=== PATIENT | female | born 1960 | race Caucasian/White ===

== ENCOUNTER 2018-06-27 10:36 | Emergency (ER) | payer OTHER ==
[2018-06-27 10:53] VITALS: TEMP 98.5; BMI 30.8
--- NOTE | 2018-06-27 11:07 | PDOC ---
History of Present Illness - General Chief Complaint: Injury Stated Complaint: FALL, LEFT RIBS PAIN - History of Present Illness Initial Comments: The patient is a 58F w/ a history of HTN, HIV (undetectable and CD4 1000s) who presents for evaluation of L thoracic pain s/p mechanical fall in shower last night at 2230. Patient reports that she slipped while getting into the shower and fell on the lip of the bathtub. Remembers the event in its entirety. Denies hitting her head and LOC. Patient took 2 advil at that time w/ some relief. Denies recent illness, fevers/chill, LOC, SHEPPARD, vision changes, SOB, abdominal pain, N/V/C/D 06/27/18 11:33 Past History - Past Medical History Allergies/Adverse Reactions: Allergies Allergy/AdvReac Type Severity Reaction Status Date / Time nitroglycerin Allergy Verified 06/27/18 10:46 Home Medications: Ambulatory Orders Atenolol [Tenormin -] 25 mg PO DAILY #30 tablet 04/15/18 Elviteg/Cob/Emtri/Tenof Alafen [Genvoya Tablet] 1 each PO DAILY #30 tablet 04/15 Gabapentin [Neurontin -] 100 mg PO HS #30 capsule 04/15/18 Lisinopril [Prinivil] 20 mg PO DAILY #30 tablet 04/15/18 Aspirin [Aspirin EC] 81 mg PO DAILY #30 tablet.dr 06/03/18 Atorvastatin Ca [Lipitor] 1 tab PO DAILY #30 tablet 06/03/18 Cholecalciferol (Vitamin D3) [Vitamin D3 -] 1,000 unit PO DAILY #30 tab Ranitidine [Zantac -] 1 tab PO DAILY #30 tablet 06/03/18 Sennosides [Senna -] 2 tab PO HS #60 tablet 06/03/18 Valacyclovir HCl [Valtrex -] 500 mg PO BID #10 tablet 06/15/18 Naproxen 500 mg PO BID PRN #14 tablet 06/27/18 Anemia: No Asthma: No Cancer: No Cardiac Disorders: Yes CVA: No COPD: No CHF: No Dementia: No Diabetes: No GI Disorders: No Disorders: Yes (renal calculus - s/p lithotripsy) HTN: Yes Hypercholesterolemia: Yes Liver Disease: No Seizures: No Thyroid Disease: No - Surgical History Abdominal Surgery: Yes - Immunization History Immunization Up to Date: Yes - Suicide/Smoking/Psychosocial Hx Smoking Status: No Smoking History: Never smoked Have you smoked in the past 12 months: No Number of Cigarettes Smoked Daily: 0 Cigars Per Day: 0 Hx Alcohol Use: No Drug/Substance Use Hx: No Substance Use Type: None Hx Substance Use Treatment: No Review of Systems - Review of Systems Able to Perform ROS?: Yes Comments:: GENERAL/CONSTITUTIONAL: No fever or chills. No weakness HEAD, EYES, EARS, NOSE AND THROAT: No change in vision. No ear pain or discharge. No sore throat CARDIOVASCULAR: No shortness of breath RESPIRATORY: Denies cough, hemoptysis GASTROINTESTINAL: No nausea, vomiting, diarrhea or constipation GENITOURINARY: No dysuria, frequency, or change in urination MUSCULOSKELETAL: +L thoracic pain; No joint or muscle swelling or pain. No neck or back pain SKIN: No rash NEUROLOGIC: No headache, vertigo, loss of consciousness, or change in strength/ sensation ENDOCRINE: No increased thirst. No abnormal weight change HEMATOLOGIC/LYMPHATIC: No anemia, easy bleeding, or history of blood clots ALLERGIC/IMMUNOLOGIC: No hives or skin allergy; +HIV,HSV 06/27/18 11:07 Is the patient limited Kazakh proficient: No *Physical Exam - Vital Signs Last Vital Signs Temp Pulse Resp BP Pulse Ox 98.5 F 73 16 154/84 99 06/27/18 10:48 06/27/18 10:48 06/27/18 10:48 06/27/18 10:48 06/27/18 10:48 - Physical Exam Comments: GENERAL: Awake, alert, and fully oriented, in no acute distress HEAD: No signs of trauma, normocephalic, atraumatic EYES: PERRLA, EOMI, sclera anicteric, conjunctiva clear ENT: Hearing grossly normal, nares patent, oropharynx clear without exudates. Moist mucosa CHEST: Exquisite TTP and small amount of laxity palpated at L inferior costal margin LUNGS: No distress, speaks full sentences, clear to auscultation bilaterally HEART: Regular rate and rhythm, normal S1 and S2, no murmurs appreciated, peripheral pulses normal and equal bilaterally ABDOMEN: Soft, nontender, normoactive bowel sounds. No guarding, no rebound. EXTREMITIES : Normal inspection, Normal range of motion, no edema. No clubbing or cyanosis NEUROLOGICAL: Cranial nerves II through XII grossly intact. Normal speech, normal gait, no focal sensorimotor deficits SKIN: Warm, Dry, normal turgor, no rashes or lesions noted 06/27/18 11:07 Moderate Sedation - Procedure Monitoring Vital Signs: Procedure Monitoring Vital Signs Temperature 98.5 F 06/27/18 10:48 Pulse Rate 73 06/27/18 10:48 Respiratory Rate 16 06/27/18 10:48 Blood Pressure 154/84 06/27/18 10:48 O2 Sat by Pulse Oximetry (%) 99 06/27/18 10:48 ED Treatment Course - LABORATORY CBC & Chemistry Diagram: 06/27/18 11:39 06/27/18 11:39 Medical Decision Making - Medical Decision Making The patient is a 58F w/ a history of HTN, HIV, and HSV who presents for evaluation of L thoracic pain s/p mechanical fall last night ED Course Tylenol 975mg PO once CT Chest sig for likely L 7th non-displaced fx lytes wnl no leukocytosis no anemia no ALISON LFTs wnl 06/27/18 13:18 Patient provided with an IS and instructed on how to use it Plan for D/C w/ PCP f/u Discharge instruction and return precautions given Plan discussed w/ patient who is in agreement and verbalized understanding Dispo: home 06/27/18 13:30 *DC/Admit/Observation/Transfer Diagnosis at time of Disposition: Fall Qualifiers: Encounter type: initial encounter Qualified Code(s): W19.XXXA - Unspecified fall, initial encounter Rib fracture Qualifiers: Encounter type: initial encounter Rib fracture type: single rib Fracture type: closed Laterality: left Qualified Code(s): S22.32XA - Fracture of one rib, left side, initial encounter for closed fracture - Discharge Dispostion Disposition: HOME Condition at time of disposition: Stable Decision to Admit order: No - Prescriptions Prescriptions: Naproxen 500 mg PO BID PRN #14 tablet PRN Reason: Pain - Referrals Referrals: Mi Polo FNP [Primary Care Provider] - - Patient Instructions Printed Discharge Instructions: DI for Rib Fracture, How to Prevent Falls, DI for Musculoskeletal Pain Additional Instructions: You were seen in the Emergency Department today for evaluation of left chest pain after falling in the bathtub. Review the handout provided at discharge. You may take Ibuprofen up to 800mg three times a day for pain and Tylenol up to 1000mg four times a day for pain. Follow up with your primary care provider within the next 1-3 days. Continue to use the incentive spirometry as directed. Return to the Emergency Department if you develop fevers/chills, worsening pain , trouble breathing, worsening symptoms, or any new/concerning symptoms. - Post Discharge Activity
[2018-06-27] MEDS ORDERED: ACETAMINOPHEN 325 MG TABLET (FP) PO ONE (11:14)
[2018-06-27] MEDS ORDERED: ACETAMINOPHEN 325 MG TABLET (FP) ONE (11:42)
[2018-06-27 12:29] LABS: BASO % 0.6 % (0-2.0); EOS % 0.9 % (0-4.5); HEMATOCRIT 36.9 % (32.4-45.2); HEMOGLOBIN 12.8 GM/dL (10.7-15.3); LYMPH % 36.1 % (8-40); MCH 33.6 pg (25.7-33.7); MCHC 34.8 g/dl (32.0-36.0); MEAN CELL VOLUME 96.4 fl (80-96); MEAN PLT VOLUME 11.2 fl (7.5-11.1); MONO % 10.4 % (3.8-10.2); PLATELET COUNT 200 K/MM3 (134-434); RBC 3.83 M/mm3 (3.60-5.2); RDW 13.6 % (11.6-15.6); WHITE BLOOD COUNT 11.3 K/mm3 (4.0-10.0)
[2018-06-27 12:59] LABS: ALK PHOS 97 U/L (45-117); ANION GAP 7 MMOL/L (8-16); BILIRUBIN,TOTAL 0.4 mg/dL (0.2-1); BLOOD UREA NITROGEN 16 mg/dL (7-18); CALCIUM 8.8 mg/dL (8.5-10.1); CHLORIDE 107 mmol/L (98-107); CO2 28 mmol/L (21-32); CREATININE 0.7 mg/dL (0.55-1.3); GLUCOSE,RANDOM 83 mg/dL (74-106); SGOT/AST 16 U/L (15-37); SGPT/ALT 24 U/L (13-61); SODIUM 142 mmol/L (136-145); TOT PROT 7.3 g/dl (6.4-8.2)
--- NOTE | 2018-06-27 13:43 | PDOC ---
Attending Attestation - Resident Resident Name: Dwight Gabriel - ED Attending Attestation I have performed the following: I have examined & evaluated the patient, The case was reviewed & discussed with the resident, I agree w/resident's findings & plan, Exceptions are as noted - HPI HPI: 06/27/18 13:30 58-year-old female with a history of hypertension, HIV with undetectable viral load and CD4 count in the 1000 range, compliant with HAART presents to the emergency department with L sided rib pain after a fall last night. The patient reports she slipped in the shower landing onto her left ribs. Denies head strike or LOC. Reports pain was managable last night and controlled with advil. THis morning, the pain was worse, especially with breathing prompting her to come to the ED. Denies other injuries or pain elsewhere. Denies fevers, chills, neck pain, back pain,cp, sob, abd pain, N/V/D, cough, urinary sxs, focal weakness/numbness - Physicial Exam PE: 06/27/18 13:44 GENERAL: Awake, alert, and fully oriented, in no acute distress. Very pleasant. HEAD: No signs of trauma EYES: PERRLA, EOMI, sclera anicteric, conjunctiva clear ENT: Auricles normal inspection, hearing grossly normal, nares patent, oropharynx clear without exudates. Moist mucosa NECK: Normal ROM, supple, no lymphadenopathy, JVD, or masses LUNGS: Breath sounds equal, clear to auscultation bilaterally. No wheezes, and no crackles CHEST: Regular rate and rhythm, normal S1 and S2, no murmurs, rubs or gallops. Point ttp over ant L rib by inframammary crease. No crepitus ABDOMEN: Soft, nontender, normoactive bowel sounds. No guarding, no rebound. No masses EXTREMITIES: Normal range of motion, no edema. No clubbing or cyanosis. No cords, erythema, or tenderness NEUROLOGICAL: Normal speech, cranial nerves intact, 5/5 strength in all 4 extremities, normal sensation to light touch in all 4 extremities, normal cerebellar exam, normal gait BACK: no midline cervical, thoracic, and lumbar ttp SKIN: Warm, Dry, normal turgor, no rashes, bruises or lesions noted. - Medical Decision Making 06/27/18 13:51 58yo F presents to the ED with mechanical fall. CT reveals non displaced L 7th rib fracture at location of pain Pt satting >97% throughout ED stay Pain well controlled Given incentive spirometer Return precautions given Requests DC home I discussed the physical exam findings, ancillary test results and final diagnoses with the patient. I answered all of the patient's questions. The patient was satisfied with the care received and felt comfortable with the discharge plan and treatment plan. The patient will call their primary care physician within 24 hours to arrange follow-up and will return to the Emergency Department with any new, persistent or worsening symptoms.
[2018-06-27] MEDS ORDERED: NAPROXEN 500 MG TABLET (FP) PO ONE (13:52)
[2018-06-27] MEDS ORDERED: NAPROXEN 500 MG TABLET (FP) ONE (13:56)
[2018-06-27 14:04] VITALS: BP 155/73; PULSE 78
== END 2018-06-27 14:04 | disposition home or self-care (01) ==
LOC: JER 10:36
DX: S22.32XA Fracture of one rib, left side, initial encounter for closed fracture (principal); W18.2XXA Fall in (into) shower or empty bathtub, initial encounter; Y93.E1 Activity, personal bathing and showering; Y92.031 Bathroom in apartment as the place of occurrence of the external cause; Y99.8 Other external cause status
CPT/HCPCS: 36415; 71046-TC-FY; 71250-TC; 80053; 85025; 99283-25

== ENCOUNTER 2018-09-21 15:26 | Emergency (ER) | payer OTHER ==
[2018-09-21] MEDS ORDERED: SODIUM CHLORIDE 1,000 ML IV STA (15:32)
--- NOTE | 2018-09-21 15:32 | PDOC ---
Rapid Medical Evaluation Time Seen by Provider: 09/21/18 15:27 Medical Evaluation: Allergies Allergy/AdvReac Type Severity Reaction Status Date / Time nitroglycerin Allergy Verified 06/27/18 10:46 09/21/18 15:27 I have performed a brief in-person evaluation of this patient. The patient presents with a chief complaint of: fever, abd pain and diarrhea Pertinent physical exam findings: VSS,AF. ABD SNTND. Returned from 09/14 I have ordered the following: labs, urine The patient will proceed to the ED for further evaluation. Discharge Disposition - Diagnosis Diarrhea - Referrals - Patient Instructions - Post Discharge Activity
[2018-09-21 15:34] VITALS: BP 158/70; PULSE 85; TEMP 98.4; BMI 29.9
[2018-09-21 16:01] LABS: BASO % 0.3 % (0-2.0); EOS % 0.5 % (0-4.5); HEMATOCRIT 39.7 % (32.4-45.2); HEMOGLOBIN 13.6 GM/dL (10.7-15.3); LYMPH % 38.9 % (8-40); MCH 33.4 pg (25.7-33.7); MCHC 34.4 g/dl (32.0-36.0); MEAN CELL VOLUME 97.3 fl (80-96); MONO % 10.6 % (3.8-10.2); NEUT % 49.7 % (42.8-82.8); RBC 4.08 M/mm3 (3.60-5.2); RDW 13.3 % (11.6-15.6); WHITE BLOOD COUNT 9.9 K/mm3 (4.0-10.0)
--- NOTE | 2018-09-21 16:03 | PDOC ---
History of Present Illness - General Chief Complaint: Vomiting/Diarrhea Stated Complaint: FEVER/ ABD PAIN Time Seen by Provider: 09/21/18 15:27 History Source: Patient - History of Present Illness Timing/Duration: other Past History - Past Medical History Allergies/Adverse Reactions: Allergies Allergy/AdvReac Type Severity Reaction Status Date / Time nitroglycerin Allergy Mild Verified 09/21/18 15:28 Home Medications: Ambulatory Orders Atenolol [Tenormin -] 25 mg PO DAILY #30 tablet 04/15/18 Elviteg/Cob/Emtri/Tenof Alafen [Genvoya Tablet] 1 each PO DAILY #30 tablet 04/15 Gabapentin [Neurontin -] 100 mg PO HS #30 capsule 04/15/18 Lisinopril [Prinivil] 20 mg PO DAILY #30 tablet 04/15/18 Aspirin [Aspirin EC] 81 mg PO DAILY #30 tablet. 06/03/18 Atorvastatin Ca [Lipitor] 1 tab PO DAILY #30 tablet 06/03/18 Sennosides [Senna -] 2 tab PO HS #60 tablet 06/03/18 Valacyclovir HCl [Valtrex -] 500 mg PO BID #10 tablet 06/15/18 Cholecalciferol (Vitamin D3) [Vitamin D3 -] 1,000 unit PO DAILY #30 tab Ranitidine [Zantac -] 1 tab PO DAILY #30 tablet 07/16/18 Diazepam [Valium] 1 tab PO ONCE PRN #2 tablet MDD 1 08/12/18 Fluticasone Prop 0.05% Nasal [Flonase -] 1 - 2 spray NS DAILY #1 spray.pump Guaifenesin [Mucinex -] 1 - 2 tab PO BID #28 tablet.er 08/26/18 Guaifenesin [Mucinex -] 1 - 2 tab PO BID PRN 08/26/18 Olopatadine HCl [Patanol] 1 drop OU BID #1 bottle 08/26/18 Soft Lens Rinse,Store Solution [Saline Sensitive Eyes] 2 drop OU QID 08/26/18 Ciprofloxacin [Cipro -] 500 mg PO Q12H #6 tablet 09/21/18 Anemia: No Asthma: No Cancer: No Cardiac Disorders: Yes CVA: No COPD: No CHF: No Dementia: No Diabetes: No GI Disorders: No Disorders: Yes (renal calculus - s/p lithotripsy) HTN: Yes Hypercholesterolemia: Yes Liver Disease: No Seizures: No Thyroid Disease: No - Surgical History Abdominal Surgery: Yes - Immunization History Immunization Up to Date: Yes - Suicide/Smoking/Psychosocial Hx Smoking Status: No Smoking History: Never smoked Have you smoked in the past 12 months: No Number of Cigarettes Smoked Daily: 0 Cigars Per Day: 0 Information on smoking cessation initiated: No Hx Alcohol Use: No Drug/Substance Use Hx: No Substance Use Type: None Hx Substance Use Treatment: No Review of Systems - Review of Systems Constitutional: Yes: Fever, Malaise Respiratory: No: Cough, Shortness of Breath Cardiac (ROS): No: Chest Pain ABD/GI: Yes: Diarrhea, Nausea, Abdominal cramping. No: Constipated, Rectal Bleeding, Vomiting : No: Dysuria *Physical Exam - Vital Signs Last Vital Signs Temp Pulse Resp BP Pulse Ox 98.4 F 85 18 158/70 100 09/21/18 15:28 09/21/18 15:28 09/21/18 15:28 09/21/18 15:28 09/21/18 15:28 - Physical Exam General Appearance: Yes: Appropriately Dressed. No: Apparent Distress HEENT: positive: Normal Voice Neck: positive: Supple Respiratory/Chest: negative: Respiratory Distress Gastrointestinal/Abdominal: positive: Normal Bowel Sounds, Tender (minimal ttp diffusely), Soft. negative: Distended, Guarding, Rebound Musculoskeletal: negative: CVA Tenderness Integumentary: positive: Dry, Warm Neurologic: positive: Fully Oriented, Alert, Normal Mood/Affect Moderate Sedation - Procedure Monitoring Vital Signs: Procedure Monitoring Vital Signs Temperature 98.4 F 09/21/18 15:28 Pulse Rate 85 09/21/18 15:28 Respiratory Rate 18 09/21/18 15:28 Blood Pressure 158/70 09/21/18 15:28 O2 Sat by Pulse Oximetry (%) 100 09/21/18 15:28 ED Treatment Course - LABORATORY CBC & Chemistry Diagram: 09/21/18 15:39 09/21/18 15:39 Medical Decision Making - Medical Decision Making 09/21/18 15:55 58 yo , h/o HIV (x 20 years, on medications, CD4 ~1700, UD VL, no OIs), HTN, [place] , here w/ abd cramping w/ numerous e/o NB diarrhea w/ malaise, dizziness and nausea x 5 days. Also reports fever of 102 F several days ago that has since resolved. Pt returned from the [place] week ago and states daughter who traveled with her also similar symptoms. Patient denies bloody stools See exam Diarrheal illness in setting of travel, less likely diverticulitis or appy Stable and in NAD w/ minimal ttp to abd diffusely -supportive tx in ER -labs including stool studies -Will d/c need for imaging w/ Dr Echevarria vs tx empirically for traveller's diarrhea 09/21/18 16:11 09/21/18 17:39 Labs unremarkable. Patient reports improvement with supportive treatment in ER w/ benign abd on reassessment. As discussed with Dr. Echevarria, will treat empirically for traveler's diarrhea with strict return precautions. Patient was unable to give us a stool sample here, but given container to collect stool at home and bring into her PMD this week 09/21/18 17:43 *DC/Admit/Observation/Transfer Diagnosis at time of Disposition: Diarrhea Qualifiers: Diarrhea type: unspecified type Qualified Code(s): R19.7 - Diarrhea, unspecified - Discharge Dispostion Disposition: HOME Condition at time of disposition: Improved - Prescriptions Prescriptions: Ciprofloxacin [Cipro -] 500 mg PO Q12H #6 tablet - Referrals Referrals: Adamaris Merchant MD [Primary Care Provider] - - Patient Instructions Printed Discharge Instructions: Diarrhea, Traveler's Diarrhea Additional Instructions: The most common cause of diarrhea is due to infections such as viruses and bacteria Given your recent travel, we have treated you presumedly for a condition called "traveller's diarrhea" Take cipro as directed. Also rest and drink plenty of fluids If symptoms persist and/or worsen, return to the ED for further evaluation and possibly CAT scan In the meantime collect stool in container given to you in the ER and bring into your PMD's office this week - Post Discharge Activity
[2018-09-21] MEDS ORDERED: ACETAMINOPHEN 1000 MG/100 ML VIAL (NON FORMULARY) IVPB ONE (16:07)
--- NOTE | 2018-09-21 16:08 | PDOC ---
*Physical Exam - Vital Signs Last Vital Signs Temp Pulse Resp BP Pulse Ox 98.4 F 85 18 158/70 100 09/21/18 15:28 09/21/18 15:28 09/21/18 15:28 09/21/18 15:28 09/21/18 15:28 ED Treatment Course - LABORATORY CBC & Chemistry Diagram: 09/21/18 15:39 09/21/18 15:39 - ADDITIONAL ORDERS Additional order review: 09/21/18 15:39 RBC 4.08 MCV 97.3 H MCHC 34.4 RDW 13.3 MPV 11.0 Neutrophils % 49.7 Lymphocytes % 38.9 Monocytes % 10.6 H Eosinophils % 0.5 Basophils % 0.3 Medical Decision Making - Medical Decision Making 09/21/18 16:08 Pt seen by the Advanced Practice Provider under my direct supervision Ancillary studies reviewed I agree with plan as outlined by the Advanced Practice Provider SOBIA Sanchez *DC/Admit/Observation/Transfer Diagnosis at time of Disposition: Diarrhea - Referrals Referrals: Adamaris Merchant MD [Primary Care Provider] - - Patient Instructions - Post Discharge Activity
[2018-09-21 16:24] LABS: PLATELET COUNT 201 K/MM3 (134-434); PLATELET ESTIMATE ADEQUATE
[2018-09-21 16:25] LABS: ALBUMIN 3.8 g/dl (3.4-5.0); ALK PHOS 102 U/L (45-117); ANION GAP 8 MMOL/L (8-16); BILIRUBIN,TOTAL 0.3 mg/dL (0.2-1); BLOOD UREA NITROGEN 10 mg/dL (7-18); CALCIUM 8.3 mg/dL (8.5-10.1); CHLORIDE 102 mmol/L (98-107); CO2 28 mmol/L (21-32); CREATININE 0.7 mg/dL (0.55-1.3); GLUCOSE,RANDOM 88 mg/dL (74-106); LIPASE 111 U/L (73-393); POTASSIUM 3.2 mmol/L (3.5-5.1); SGOT/AST 20 U/L (15-37); SGPT/ALT 46 U/L (13-61); SODIUM 138 mmol/L (136-145)
[2018-09-21] MEDS ORDERED: ACETAMINOPHEN INJECTION 100 ML IVPB ONE (16:29)
[2018-09-21] MEDS ORDERED: POTASSIUM CHLORIDE TABS 20 MEQ TABLET.ER (FP) PO ONE ×2 (16:33→16:44)
--- NOTE | 2018-09-22 13:58 | EKG ---
Test Reason : Blood Pressure : / mmHG Vent. Rate : 070 BPM Atrial Rate : 070 BPM P-R Int : 168 ms QRS Dur : 074 ms QT Int : 424 ms P-R-T Axes : 026 268 026 degrees QTc Int : 457 ms NORMAL SINUS RHYTHM RIGHT SUPERIOR AXIS DEVIATION POSSIBLE ANTERIOR INFARCT , AGE UNDETERMINED ABNORMAL ECG WHEN COMPARED WITH ECG OF 29-DEC-2012 11:42, VENT. RATE HAS DECREASED BY 37 BPM QUESTIONABLE CHANGE IN QRS AXIS Confirmed by MD Quentin, Junior ([id number]) on 09/22/2018 1:58:11 PM Referred By: Confirmed By:Junior Saavedra MD
== END 2018-09-21 18:01 | disposition home or self-care (01) ==
LOC: JER 15:26
PROC: 3E0337Z Introduction of Electrolytic and Water Balance Substance into Peripheral Vein, Percutaneous Approach (ICD-10-PCS; principal; 2018-09-21)
PROC: 3E033NZ Introduction of Analgesics, Hypnotics, Sedatives into Peripheral Vein, Percutaneous Approach (ICD-10-PCS; 2018-09-21)
DX: R19.7 Diarrhea, unspecified (principal); I10 Essential (primary) hypertension; E78.00 Pure hypercholesterolemia, unspecified; Z21 Asymptomatic human immunodeficiency virus [HIV] infection status; Z87.442 Personal history of urinary calculi
CPT/HCPCS: 36415; 80053; 83690; 85025; 87804; 93005; 93010; 96361; 96374; 99284-25; J0131; J7030

== ENCOUNTER 2019-09-14 23:10 | Emergency (ER) | payer OTHER ==
[2019-09-14 23:46] VITALS: BMI 25.7
[2019-09-15] MEDS ORDERED: ACETAMINOPHEN 500 MG TABLET (FP) PO ONE (00:28)
[2019-09-15] MEDS ORDERED: ALBUTEROL SO4 0.083% IH SOL 2.5 MG/3 ML VIAL.NEB. NEB ONE ×2 (00:28→00:58)
--- NOTE | 2019-09-15 00:28 | PDOC ---
History of Present Illness - General Chief Complaint: Cold Symptoms Stated Complaint: COLD SYMPTOMS Time Seen by Provider: 09/14/19 23:23 History Source: Patient - History of Present Illness Initial Comments: 09/15/19 00:37 59-year-old female complaining of chest congestion, cough and low-grade fevers at home for the past week. Patient was seen by her primary care provider yesterday and was started on azithromycin. Patient reports chest congestion not improving. Past medical history of HIV CD4 greater than 1700, hypertension, hyperlipidemia Past History - Past Medical History Allergies/Adverse Reactions: Allergies Allergy/AdvReac Type Severity Reaction Status Date / Time nitroglycerin Allergy Mild Verified 09/14/19 23:46 Home Medications: Ambulatory Orders Cholecalciferol (Vitamin D3) [D3-50] 1 cap PO WEEKLY #4 capsule 05/04/19 Clotrimazole/Betamethasone Dip [Clotrimazole-Betamethasone Crm] 1 applic TP ASDIR #1 tube 05/04/19 Olopatadine HCl [Pataday] 1 drop OP BID #1 bottle 05/04/19 Acetaminophen [Tylenol Extra Strength] 1 - 2 tab PO BID #30 tablet 08/25/19 Acyclovir 1 applic TP ASDIR #1 tube 08/25/19 Ammonium Lactate Lotion [Lac-Hydrin 12] 1 applic TP ASDIR 30 Days #1 bottle 12/07 Aspirin [Aspirin EC] 1 tab PO DAILY #30 tablet. 08/25/19 Atenolol [Tenormin -] 1 tab PO DAILY #30 tablet 08/25/19 Atorvastatin Ca [Lipitor] 1 tab PO HS #30 tablet 08/25/19 Cetirizine HCl [Zyrtec -] 1 tab PO DAILY #30 tablet 08/25/19 Elviteg/Cob/Emtri/Tenof Alafen [Genvoya (Non-Formulary)] 1 each PO DAILY #30 tablet 08/25/19 Fluticasone Prop 0.05% Nasal [Flonase -] 1 - 2 spray NS DAILY #1 spray.pump 12/07 Gabapentin [Neurontin -] 1 tab PO HS #30 capsule 08/25/19 Lisinopril [Prinivil] 1 tab PO DAILY #30 tablet 08/25/19 Mv-Min/Iron/Folic AC/Reginaldo/D3/Aa [K-Whiting Immune Support Tablet] 2 tab PO BID #120 tablet 08/25/19 Omeprazole 1 tab PO DAILY #30 tablet. 08/25/19 Psyllium Husk [Metamucil] 1 scoop PO DAILY #1 bottle 08/25/19 Sennosides [Senna -] 2 tab PO HS #60 tablet 08/25/19 Valacyclovir HCl [Valtrex -] 1 tab PO BID #10 tablet 08/25/19 Albuterol Sulfate Inhaler - [Ventolin HFA Inhaler -] 1 - 2 inh PO QID #1 inhaler 09/13/19 Azithromycin [Zithromax -] 250 mg PO UTDICT #6 tab 09/13/19 Mag Hydrox/Al Hydrox/Simeth [Mylanta Oral Suspension -] 2 tsp PO Q6H #1 bottle 09/13/19 Albuterol 0.083% Nebulizer Mikaela [Ventolin 0.083% Nebulizer Soln -] 1 neb NEB Q4H PRN #30 vial 09/15/19 Nebulizer [Aeroeclipse II] 1 each MC Q4H PRN #1 each 09/15/19 Anemia: No Asthma: No Cancer: No Cardiac Disorders: Yes CVA: No COPD: No CHF: No Dementia: No Diabetes: No GI Disorders: No Disorders: Yes (renal calculus - s/p lithotripsy) HTN: Yes Hypercholesterolemia: Yes Liver Disease: No Seizures: No Thyroid Disease: No - Surgical History Abdominal Surgery: Yes - Immunization History Immunization Up to Date: Yes - Psycho Social/Smoking Cessation Hx Smoking Status: No Smoking History: Never smoked Have you smoked in the past 12 months: No Number of Cigarettes Smoked Daily: 0 Cigars Per Day: 0 Information on smoking cessation initiated: No Hx Alcohol Use: No Drug/Substance Use Hx: No Substance Use Type: None Hx Substance Use Treatment: No Respiratory Specific PMHX - Complaint Specific PMHX Hx Pneumonia: No Hx TB (Tuberculosis): No Review of Systems - Review of Systems Able to Perform ROS?: Yes Is the patient limited Beninese proficient: No Constitutional: Yes: Chills, Fever. No: Symptoms Reported, See HPI, Diaphoresis , Loss of Appetite, Malaise, Night Sweats, Weakness, Weight Stable, Unintentional Wgt. Loss, Unexplained wgt Loss, Other Respiratory: Yes: Cough. No: Symptoms reported, See HPI, Orthopnea, Shortness of Breath, SOB with Exertion, SOB at Rest, Stridor, Wheezing, Productive cough, Hemoptysis, Other *Physical Exam - Vital Signs Last Vital Signs Temp Pulse Resp BP Pulse Ox 99.9 F H 98 H 18 163/73 99 09/14/19 23:15 09/14/19 23:15 09/14/19 23:15 09/14/19 23:15 09/14/19 23:15 - Physical Exam General Appearance: Yes: Apparent Distress Respiratory/Chest: positive: Lungs Clear, Normal Breath Sounds. negative: Chest Tender Cardiovascular: positive: Regular Rhythm, Regular Rate Integumentary: positive: Normal Color, Dry, Warm Neurologic: positive: Fully Oriented, Alert ED Progress Note - Progress Note Progress Note: 09/15/19 00:47 A: bronchitis P: chest xray Discharge - Discharge Information Problems reviewed: Yes Clinical Impression/Diagnosis: Bronchitis Disposition: HOME - Additional Discharge Information Prescriptions: Albuterol 0.083% Nebulizer Mikaela [Ventolin 0.083% Nebulizer Soln -] 1 neb NEB Q4H PRN #30 vial PRN Reason: Cough Nebulizer [Aeroeclipse II] 1 each MC Q4H PRN #1 each PRN Reason: Cough - Follow up/Referral Referrals: Mi Polo, HARDWARE DESIGN ENGINEER [Primary Care Provider] - - Patient Discharge Instructions Patient Printed Discharge Instructions: DI for Acute Bronchitis Additional Instructions: Continue azithromycin as prescribed by your doctor Drink plenty of fluids Use albuterol every 4-6 hours as needed for cough Follow-up with your doctor soon as possible Return to the emergency room for any worsening symptoms - Post Discharge Activity Work/Back to School Note: Back to Work
[2019-09-15] MEDS ORDERED: ACETAMINOPHEN 500 MG TABLET (FP) ONE (00:58)
[2019-09-15] MEDS ORDERED: ALBUTEROL SO4 2.5/IPRATROPIUM 0.5 INH SOL 3 ML VIAL.NEB. NEB ONE ×2 (01:48→02:01)
[2019-09-15 02:48] VITALS: BP 140/76; PULSE 92; TEMP 98
--- NOTE | 2019-09-15 16:38 | EKG ---
Test Reason : Blood Pressure : / mmHG Vent. Rate : 088 BPM Atrial Rate : 088 BPM P-R Int : 156 ms QRS Dur : 076 ms QT Int : 386 ms P-R-T Axes : 056 238 027 degrees QTc Int : 467 ms NORMAL SINUS RHYTHM RIGHT SUPERIOR AXIS DEVIATION PULMONARY DISEASE PATTERN ABNORMAL ECG Confirmed by MD RAHUL, CECI ([id number]) on 09/15/2019 4:37:29 PM Referred By: Confirmed By:CECI KAY MD
== END 2019-09-15 02:46 | disposition home or self-care (01) ==
LOC: JER 23:10
PROC: 3E0F7GC Introduction of Other Therapeutic Substance into Respiratory Tract, Via Natural or Artificial Opening (ICD-10-PCS; principal; 2019-09-14)
PROC: 3E0F7GC Introduction of Other Therapeutic Substance into Respiratory Tract, Via Natural or Artificial Opening (ICD-10-PCS; 2019-09-14)
DX: J40 Bronchitis, not specified as acute or chronic (principal); I10 Essential (primary) hypertension; E78.5 Hyperlipidemia, unspecified; Z21 Asymptomatic human immunodeficiency virus [HIV] infection status; Z88.8 Allergy status to other drugs, medicaments and biological substances
CPT/HCPCS: 71046-TC-FY; 93005; 93010; 94640; 99285-25

== ENCOUNTER 2020-10-16 20:09 | Emergency (ER) | payer OTHER ==
[2020-10-16 20:19] VITALS: BP 168/83; PULSE 86; TEMP 98.3; BMI 27.1
[2020-10-16] MEDS ORDERED: ACETAMINOPHEN 1000 MG/100 ML VIAL (NON FORMULARY) IVPB ONE (23:20)
[2020-10-16] MEDS ORDERED: METOCLOPRAMIDE HCL INJECTION 10 MG/2 ML VIAL IVPB ONE (23:20)
[2020-10-16] MEDS ORDERED: METOCLOPRAMIDE HCL INJECTION 10 MG/2 ML VIAL ONE (23:35)
[2020-10-16] MEDS ORDERED: ACETAMINOPHEN INJECTION 100 ML IVPB ONE (23:36)
== END 2020-10-17 00:49 | disposition home or self-care (01) ==
LOC: JER 20:09
PROC: 3E0333Z Introduction of Anti-inflammatory into Peripheral Vein, Percutaneous Approach (ICD-10-PCS; principal; 2020-10-16)
PROC: 3E033GC Introduction of Other Therapeutic Substance into Peripheral Vein, Percutaneous Approach (ICD-10-PCS; 2020-10-16)
DX: R51.9 Headache, unspecified (principal)
CPT/HCPCS: 70450-TC; 99284-25; J0131

== ENCOUNTER 2021-06-20 17:44 | Observation (INO) | payer OTHER ==
[2021-06-20 18:03] VITALS: BMI 27.3
[2021-06-20] MEDS ORDERED: ASPIRIN 81 MG CHEWABLE TABLETS PO ONE (20:08)
[2021-06-20] MEDS ORDERED: ASPIRIN 81 MG CHEWABLE TABLETS ONE (20:53)
[2021-06-20 21:03] LABS: BASO % 0.7 % (0-2.0); EOS % 1.5 % (0-4.5); HEMATOCRIT 39.8 % (32.4-45.2); HEMOGLOBIN 13.3 GM/dL (10.7-15.3); MCH 31.4 pg (25.7-33.7); MCHC 33.5 g/dl (32.0-36.0); MEAN CELL VOLUME 93.9 fl (80-96); MEAN PLT VOLUME 10.9 fl (7.5-11.1); MONO % 14.2 % (3.8-10.2); NEUT % 48.6 % (42.8-82.8); PLATELET COUNT 184 10^3/uL (134-434); RBC 4.24 M/mm3 (3.60-5.2); RDW 13.3 % (11.6-15.6); WHITE BLOOD COUNT 8.4 K/mm3 (4.0-10.0)
[2021-06-20 21:18] LABS: CHLORIDE 107 mmol/L (98-107); SODIUM 143 mmol/L (136-145)
[2021-06-20 21:20] LABS: CALCIUM 9.3 mg/dL (8.5-10.1)
[2021-06-20 21:21] LABS: ALBUMIN 4.2 g/dl (3.4-5.0); ANION GAP 7 MMOL/L (8-16); BLOOD UREA NITROGEN 12.2 mg/dL (7-18); CO2 29 mmol/L (21-32); GLUCOSE,RANDOM 102 mg/dL (74-106)
[2021-06-20 21:24] LABS: CREATININE 0.8 mg/dL (0.55-1.3); SGOT/AST 24 U/L (15-37); SGPT/ALT 27 U/L (13-61)
[2021-06-20 21:26] LABS: BILIRUBIN,TOTAL 0.3 mg/dL (0.2-1); TOT PROT 7.9 g/dl (6.4-8.2)
[2021-06-20 21:27] LABS: ALK PHOS 124 U/L (45-117)
[2021-06-20 22:18] LABS: N-TERMINAL BNP 30.7 pg/ml (5-125)
[2021-06-20] MEDS ORDERED: hydrOXYzine PAMOATE 50 MG CAPSULE (FP) PO ONE (23:36)
[2021-06-21] MEDS ORDERED: hydrOXYzine PAMOATE 50 MG CAPSULE (FP) ONE (00:21)
[2021-06-21] MEDS ORDERED: MELATONIN 5 MG TABLETS PO PRN (01:55)
[2021-06-21] MEDS ORDERED: ALBUTEROL SO4 HFA INHALER IH PRN (03:41)
[2021-06-21 07:33] LABS: BASO % 0.6 % (0-2.0); EOS % 1.7 % (0-4.5); HEMATOCRIT 37.7 % (32.4-45.2); HEMOGLOBIN 12.8 GM/dL (10.7-15.3); LYMPH % 37.1 % (8-40); MCHC 33.9 g/dl (32.0-36.0); MEAN CELL VOLUME 94.4 fl (80-96); MEAN PLT VOLUME 11.4 fl (7.5-11.1); MONO % 16.5 % (3.8-10.2); NEUT % 44.1 % (42.8-82.8); PLATELET COUNT 190 10^3/uL (134-434); WHITE BLOOD COUNT 7.1 K/mm3 (4.0-10.0)
[2021-06-21 07:56] LABS: ALBUMIN 3.7 g/dl (3.4-5.0); CALCIUM 9.2 mg/dL (8.5-10.1)
[2021-06-21 07:57] LABS: BLOOD UREA NITROGEN 10.2 mg/dL (7-18); MAGNESIUM 2.5 mg/dL (1.8-2.4)
[2021-06-21 08:00] LABS: CREATININE 0.7 mg/dL (0.55-1.3); PHOSPHOROUS 3.3 mg/dL (2.5-4.9)
[2021-06-21 08:01] LABS: BILIRUBIN,TOTAL 0.4 mg/dL (0.2-1); TOT PROT 7.5 g/dl (6.4-8.2)
[2021-06-21] MEDS ORDERED: ASPIRIN COATED 81 MG TABLET.EC ONE (08:41)
[2021-06-21] MEDS ORDERED: ATENOLOL 25 MG TABLET (FP) ONE (08:42)
[2021-06-21] MEDS ORDERED: LISINOPRIL 20 MG TABLET ONE (08:42)
[2021-06-21] MEDS ORDERED: ENOXAPARIN NA (PORCINE) 40 MG/0.4 ML DISP.SYRIN SQ ONE (08:42)
[2021-06-21] MEDS ORDERED: LISINOPRIL 20 MG TABLET PO SCH (10:00)
[2021-06-21] MEDS ORDERED: ATENOLOL 25 MG TABLET (FP) PO SCH (10:00)
[2021-06-21] MEDS ORDERED: ENOXAPARIN NA (PORCINE) 40 MG/0.4 ML DISP.SYRIN SQ SCH (10:00)
[2021-06-21] MEDS ORDERED: ASPIRIN COATED 81 MG TABLET.EC PO SCH (10:00)
[2021-06-21] MEDS ORDERED: BICTEGRAV/EMTRICIT/TENOFOV (BIKTARVY) 50-200-25 MG TABLET PO SCH (10:00)
[2021-06-21 12:21] VITALS: BP 166/87; PULSE 73; TEMP 98.7
[2021-06-21] MEDS ORDERED: GABAPENTIN 100 MG CAPSULE PO SCH (22:00)
[2021-06-21] MEDS ORDERED: ATORVASTATIN CA 40 MG TABLET (FP) PO SCH (22:00)
== END 2021-06-21 12:25 | disposition home or self-care (01) ==
LOC: JER 17:44 → JERBED 22:13
PROVIDERS: ADMIT Internal Medicine; ATTEND Internal Medicine
PROC: 3E023GC Introduction of Other Therapeutic Substance into Muscle, Percutaneous Approach (ICD-10-PCS; principal; 2021-06-20)
DX: I25.10 Atherosclerotic heart disease of native coronary artery without angina pectoris (principal); I10 Essential (primary) hypertension; N20.0 Calculus of kidney; E78.5 Hyperlipidemia, unspecified; R06.02 Shortness of breath; R09.89 Other specified symptoms and signs involving the circulatory and respiratory systems; M79.7 Fibromyalgia; B20 Human immunodeficiency virus [HIV] disease; Z88.8 Allergy status to other drugs, medicaments and biological substances
CPT/HCPCS: 36415; 71046-TC-FY; 80053; 82550; 83735; 83880; 84100; 84484; 85025; 87804; 93005; 93010; 96372; 99285-25; C9803; G0378; U0003; U0005

== ENCOUNTER 2022-04-09 04:58 | Day surgery (SDC) | payer OTHER ==
[2022-04-04 13:52] VITALS: BMI 27.1
[2022-04-09 08:07] VITALS: RESP 18
[2022-04-09] MEDS ORDERED: MIDAZOLAM HCL 2 MG/2 ML SINGLE DOSE VIAL ONE (10:38)
[2022-04-09] MEDS ORDERED: ceFAZolin SODIUM 1 GM VIAL IVPB ONE (10:40)
[2022-04-09] MEDS ORDERED: ceFAZolin SODIUM 1 GM VIAL ONE (10:43)
[2022-04-09 11:35] VITALS: PULSE 64
[2022-04-09 13:53] VITALS: BP 145/71; TEMP 98
== END 2022-04-09 13:00 | disposition home or self-care (01) ==
LOC: JASU-SURG 04:58
PROVIDERS: ATTEND Urology
PROC: 0TF3XZZ Fragmentation in Right Kidney Pelvis, External Approach (ICD-10-PCS; principal; 2022-04-09 09:45)
DX: N20.0 Calculus of kidney (principal)
CPT/HCPCS: 82962

== ENCOUNTER 2022-05-18 13:45 | Emergency (ER) | payer OTHER ==
[2022-05-18 14:02] VITALS: BP 148/79; PULSE 90; RESP 18; TEMP 99.8; BMI 25.5
== END 2022-05-18 17:26 | disposition home or self-care (01) ==
LOC: JER 13:45
DX: R51.9 Headache, unspecified (principal); R09.81 Nasal congestion
CPT/HCPCS: 71046-TC-FY; 99283-25

== ENCOUNTER 2022-11-20 10:07 | Emergency (ER) | payer OTHER ==
[2022-11-20 10:27] VITALS: BP 156/77; PULSE 90; RESP 18; TEMP 98.2; BMI 27.3
[2022-11-20] MEDS ORDERED: SODIUM CHLORIDE 0.9% 500 ML INFUS.BAG IV ONE (12:09)
[2022-11-20] MEDS ORDERED: ACETAMINOPHEN 1000 MG/100 ML BAG IVPB ONE (12:09)
[2022-11-20] MEDS ORDERED: ACETAMINOPHEN INJECTION 100 ML IVPB ONE (12:26)
[2022-11-20 13:00] LABS: BASO % 0.5 % (0-2.0); EOS % 1.5 % (0-4.5); HEMATOCRIT 39.3 % (32.4-45.2); HEMOGLOBIN 13.2 GM/dL (10.7-15.3); LYMPH % 36.2 % (8-40); MCH 31.5 pg (25.7-33.7); MCHC 33.6 g/dl (32.0-36.0); MEAN CELL VOLUME 93.7 fl (80-96); MEAN PLT VOLUME 10.3 fl (7.5-11.1); MONO % 9.7 % (3.8-10.2); NEUT % 52.1 % (42.8-82.8); PLATELET COUNT 216 10^3/uL (134-434); RBC 4.19 M/mm3 (3.60-5.2); RDW 13.7 % (11.6-15.6)
[2022-11-20 13:04] LABS: EPI CELLS 4 /uL (0-25.1); HYALINE CASTS 0 /uL (0-3.1); URINE APPEARANCE CLEAR; URINE BACTERIA 24 /uL (0-1359); URINE BILIRUBIN NEGATIVE (NEGATIVE); URINE COLOR YELLOW; URINE GLUCOSE (UA) NEGATIVE (NEGATIVE); URINE KETONE NEGATIVE (NEGATIVE); URINE LEUK ESTERASE TRACE (NEGATIVE); URINE NITRITE NEGATIVE (NEGATIVE); URINE PROTEIN NEGATIVE (NEGATIVE); URINE RBC 4 /uL (0-23.9); URINE UROBILINOGEN 0.2 mg/dL (0.2-1.0); URINE WBC 10 /uL (0-25.8)
[2022-11-20 13:16] LABS: POTASSIUM 4.2 mmol/L (3.5-5.1)
[2022-11-20 13:17] LABS: ALBUMIN 4.2 g/dl (3.4-5.0); CALCIUM 9.4 mg/dL (8.5-10.1)
[2022-11-20 13:18] LABS: BLOOD UREA NITROGEN 16.4 mg/dL (7-18)
[2022-11-20 13:21] LABS: CREATININE 0.9 mg/dL (0.55-1.3)
[2022-11-20 13:22] LABS: BILIRUBIN,TOTAL 0.5 mg/dL (0.2-1); TOT PROT 8.3 g/dl (6.4-8.2)
[2022-11-20] MEDS ORDERED: LIDOCAINE 5% TOPICAL PATCH TP ONE (14:53)
[2022-11-20] MEDS ORDERED: LIDOCAINE 5% TOPICAL PATCH ONE (14:57)
[2022-11-20] MEDS ORDERED: LIDOCAINE PATCH REMOVAL MC SCH (22:00)
== END 2022-11-20 15:39 | disposition home or self-care (01) ==
LOC: JER 10:07
PROC: 3E033NZ Introduction of Analgesics, Hypnotics, Sedatives into Peripheral Vein, Percutaneous Approach (ICD-10-PCS; principal; 2022-11-20)
DX: R10.9 Unspecified abdominal pain (principal); R68.83 Chills (without fever)
CPT/HCPCS: 36415; 76775-TC; 80053; 81003; 85025; 87077; 87086; 99284-25

== ENCOUNTER 2023-05-30 12:05 | Emergency (ER) | payer OTHER ==
[2023-05-30 12:29] VITALS: BP 149/73; PULSE 81; RESP 18; TEMP 98.6; BMI 27.9
[2023-05-30] MEDS ORDERED: SODIUM CHLORIDE 1,000 ML IV STA (12:37)
[2023-05-30] MEDS ORDERED: ACETAMINOPHEN 1000 MG/100 ML BAG IVPB ONE (12:44)
[2023-05-30] MEDS ORDERED: ACETAMINOPHEN INJECTION 100 ML IVPB ONE (12:52)
[2023-05-30 14:08] LABS: BASO % 0.3 % (0-2.0); EOS % 1.5 % (0-4.5); HEMATOCRIT 43.3 % (32.4-45.2); HEMOGLOBIN 13.7 GM/dL (10.7-15.3); LYMPH % 33.3 % (8-40); MCH 30.6 pg (25.7-33.7); MCHC 31.6 g/dl (32.0-36.0); MEAN CELL VOLUME 96.8 fl (80-96); MEAN PLT VOLUME 11.1 fl (7.5-11.1); MONO % 9.3 % (3.8-10.2); NEUT % 55.6 % (42.8-82.8); PLATELET COUNT 237 10^3/uL (134-434); RBC 4.47 M/mm3 (3.60-5.2); RDW 14.1 % (11.6-15.6); WHITE BLOOD COUNT 14.2 K/mm3 (4.0-10.0)
[2023-05-30 14:11] LABS: EPI CELLS 22 /uL (0-25.1); HYALINE CASTS 0 /uL (0-3.1); URINE APPEARANCE CLEAR; URINE BACTERIA 566 /uL (0-1359); URINE BILIRUBIN NEGATIVE (NEGATIVE); URINE COLOR YELLOW; URINE GLUCOSE (UA) NEGATIVE (NEGATIVE); URINE KETONE NEGATIVE (NEGATIVE); URINE LEUK ESTERASE 2+ (NEGATIVE); URINE NITRITE NEGATIVE (NEGATIVE); URINE PROTEIN NEGATIVE (NEGATIVE); URINE RBC 9 /uL (0-23.9); URINE UROBILINOGEN 0.2 mg/dL (0.2-1.0); URINE WBC 135 /uL (0-25.8)
[2023-05-30 14:48] LABS: POTASSIUM 3.9 mmol/L (3.5-5.1)
[2023-05-30 14:52] LABS: ALBUMIN 4.1 g/dl (3.4-5.0); CALCIUM 9.4 mg/dL (8.5-10.1)
[2023-05-30 14:53] LABS: BLOOD UREA NITROGEN 13.9 mg/dL (7-18)
[2023-05-30 14:56] LABS: CREATININE 0.8 mg/dL (0.55-1.3)
[2023-05-30 14:57] LABS: BILIRUBIN,TOTAL 0.6 mg/dL (0.2-1); TOT PROT 8.2 g/dl (6.4-8.2)
== END 2023-05-30 15:53 | disposition home or self-care (01) ==
LOC: JER 12:05
PROC: 3E033NZ Introduction of Analgesics, Hypnotics, Sedatives into Peripheral Vein, Percutaneous Approach (ICD-10-PCS; principal; 2023-05-30)
PROC: 3E0337Z Introduction of Electrolytic and Water Balance Substance into Peripheral Vein, Percutaneous Approach (ICD-10-PCS; 2023-05-30)
DX: R10.9 Unspecified abdominal pain (principal); M54.9 Dorsalgia, unspecified; R30.0 Dysuria; R39.15 Urgency of urination; N39.0 Urinary tract infection, site not specified; N20.1 Calculus of ureter
CPT/HCPCS: 36415; 74176-TC; 80053; 81003; 83690; 85025; 87077; 87086; 99284-25

== ENCOUNTER → 2023-10-16 | Day surgery (SDC) | payer OTHER | END | disposition home or self-care (01) | LOC: JRADIR 09:12 | PROVIDERS: ATTEND Internal Medicine Endocrinology, Diabetes & Metabolism | PROC: 0G9H3ZX Drainage of Right Thyroid Gland Lobe, Percutaneous Approach, Diagnostic (ICD-10-PCS; principal; 2023-10-16) | DX: E04.1 Nontoxic single thyroid nodule (principal) | CPT/HCPCS: 10005; 76942; 88173; 88305-TC ==

== ENCOUNTER 2024-02-27 22:47 | Emergency (ER) | payer OTHER ==
[2024-02-27 23:00] VITALS: TEMP 98; BMI 32.2
[2024-02-27] MEDS: ACETAMINOPHEN 325 MG TABLET (FP) PO ONE (23:49)
[2024-02-27] MEDS ORDERED: ACETAMINOPHEN 325 MG TABLET (FP) ONE (23:54)
[2024-02-28 00:48] VITALS: BP 136/70; PULSE 69; RESP 19
== END 2024-02-28 01:35 | disposition home or self-care (01) ==
LOC: JER 22:47
DX: R51.9 Headache, unspecified (principal); H93.8X9 Other specified disorders of ear, unspecified ear; T44.5X5A Adverse effect of predominantly beta-adrenoreceptor agonists, initial encounter
CPT/HCPCS: 82962; 99283-25

== ENCOUNTER 2025-01-06 15:07 | Emergency (ER) | payer OTHER ==
[2025-01-06 15:15] VITALS: RESP 16; BMI 28.3
[2025-01-06] MEDS ORDERED: ACETAMINOPHEN 500 MG TABLET (FP) ONE (15:36)
[2025-01-06] MEDS: ACETAMINOPHEN 500 MG TABLET (FP) PO ONE (15:43)
[2025-01-06 15:59] LABS: ABSOLUTE IMMATURE GRANULOCYTES 0.06 x10^3/uL (0.0-0.031); MCHC 33.3 g/dl (32.2-35.5); MEAN CELL VOLUME 97.4 fl (79.4-94.8); MEAN PLT VOLUME 12.6 fl (9.4-12.3)
[2025-01-06 16:01] LABS: BASOPHILS # 0.06 x10^3/uL (0.01-0.08); EOSINOPHIL % 2.4 % (0.7-5.8); EOSINOPHILS # 0.35 x10^3/uL (0.04-0.36); HEMATOCRIT 37.5 % (34.1-44.9); HEMOGLOBIN 12.5 g/dL (11.2-15.7); MONOCYTE # 1.71 x10^3/uL (0.24-0.86); MONOCYTE % 11.8 % (4.7-12.5); PLATELET COUNT 228 x10^3/uL (182-369); RDW 13.9 % (12.4-16.4)
[2025-01-06 16:17] LABS: POTASSIUM 3.7 mmol/L (3.5-5.1)
[2025-01-06 16:19] LABS: CALCIUM 9.8 mg/dL (8.5-10.1)
[2025-01-06 16:20] LABS: ALBUMIN 3.8 g/dl (3.4-5.0); BLOOD UREA NITROGEN 16.9 mg/dL (7-18)
[2025-01-06 16:23] LABS: CREATININE 0.7 mg/dL (0.55-1.3)
[2025-01-06 16:25] LABS: BILIRUBIN,TOTAL 0.3 mg/dL (0.2-1); TOT PROT 7.6 g/dl (6.4-8.2)
[2025-01-06 17:20] VITALS: BP 108/63; PULSE 77
[2025-01-06 17:21] VITALS: TEMP 98.8
== END 2025-01-06 18:08 | disposition home or self-care (01) ==
LOC: JERFT 15:07
DX: R05.9 Cough, unspecified (principal); R50.9 Fever, unspecified; R09.81 Nasal congestion; R07.81 Pleurodynia
CPT/HCPCS: 0241U-QW; 36415; 71046-TC-FY; 80053; 84484; 85025; 93005; 93010; 99285-25